=== PATIENT | female | born 1940 | race Caucasian/White ===

== ENCOUNTER 2019-08-12 18:49 | Inpatient (IN) | payer MEDICARE ==
[2019-08-12] MEDS ORDERED: Acetaminophen 650 MG Suppository PR PRN (20:54)
--- NOTE | 2019-08-12 21:31 | PDOC.EVN ---
Event Note - Event Note Event Note: [id number] HP
[2019-08-12 21:36] LABS: Vancomycin, Trough Less than 1.1 ug/mL
[2019-08-12] MEDS: Sodium Chloride 0.9% 1,000 ML IV SCH (23:19)
[2019-08-12] MEDS: metroNIDAZOLE 500 MG in Premix Bag 1 BAG IVPB SCH (23:20)
[2019-08-12] MEDS: Vancomycin HCl 1 GM in Premix Bag 1 BAG IVPB SCH (23:24)
[2019-08-12] MEDS: Heparin 5,000 UNITS/ML VIAL SC SCH (23:25)
[2019-08-13 00:07] LABS: Lactic Acid 2.4 mmol/L (0.5-2.2)
[2019-08-13] MEDS: Vancomycin HCl 1 GM in Premix Bag 1 BAG IVPB SCH ×3 (00:52→20:41)
--- NOTE | 2019-08-13 02:14 | HP ---
CHIEF COMPLAINT: Altered mental status. HISTORY OF PRESENT ILLNESS: Ms. Watkins is a 79-year-old female with past medical history of Alzheimer's dementia, hyperlipidemia, hypertension, among others, presented to [facility] with altered mental status. The patient is a [facility] resident. The patient is a poor historian and unable to give a clear history. She is able to answer only yes and no questions. She denies pain, shortness of breath, or nausea. Workup in the emergency room, the patient was septic with lactic acid of 5.9 and elevated WBC count of 12.5. Acute renal failure with a BUN of 52 and creatinine of 1.7. Hypernatremic with sodium of 148. The patient has a history of urinary tract infections in the past. Septic workup done in the ED. The patient is on IV broad-spectrum antibiotics. The patient is being admitted to hospital for further management. PAST MEDICAL HISTORY: 1. Alzheimer dementia. 2. Hyperlipidemia. 3. Hypertension. PAST SURGICAL HISTORY: 1. Hysterectomy. 2. Kidney stone removal. SOCIAL HISTORY: The patient smokes cigarettes. Denies alcohol use. FAMILY HISTORY: Reviewed and noncontributory. HOME MEDICATIONS: Please see home medication reconciliation form for updated medications. ALLERGIES: NO KNOWN ALLERGIES. REVIEW OF SYSTEMS: Unreliable, but review of 14 systems negative except what is mentioned in the history of present illness. PHYSICAL EXAMINATION: VITAL SIGNS: Blood pressure is 120/56, pulse is 78, respiratory rate is 18, pulse oximetry is 94% on room air. HEAD: Normocephalic, atraumatic. NECK: Supple. No JVD. CHEST: Fair bilateral air entry. HEART: S1, S2. Regular. ABDOMEN: Soft, nontender. Bowel sounds present. NEUROLOGIC: Awake, alert, moving extremities. PSYCHIATRIC: Unable to assess. EXTREMITIES: No clubbing, no cyanosis. GENITOURINARY: No suprapubic tenderness. No flank tenderness. MUSCULOSKELETAL: No joint tenderness or apparent deformity. LABORATORY DATA: WBC count is 12.5, hemoglobin 15.9, platelets 143. Sodium 143, potassium 4.4, BUN is 52, creatinine 1.7, glucose 179. Chest x-ray, no acute cardiopulmonary process. CT of the brain, no acute intracranial process. ASSESSMENT: A 79-year-old female with history of dementia, hypertension, hyperlipidemia, presenting with altered mental status. 1. Sepsis, source is unclear at this point. 2. Lactic acidosis. 3. Hypernatremia. 4. Acute renal failure. 5. Hypertension. 6. Hyperlipidemia. PLAN: 1. Admit. 2. Septic workup including blood cultures. 3. IV antibiotics, awaiting culture results. 4. IV fluid hydration. 5. Monitor kidney function and urine output. 6. Reconcile medications. 7. DVT prophylaxis as appropriate. 8. Expected length of stay 2 midnights or more. Job ID: [id number]
[2019-08-13 02:22] LABS: Band 3 % (5-11); Hemoglobin 13.6 g/dL (12.0-16.0); Lymphocytes 17 % (21-51); MDiff Complete? YES; Mean Corpuscular HGB CONC 32.7 g/dL (32.0-36.0); Mean Corpuscular Hemoglobin 34.3 pg (27.0-31.0); Mean Platelet Volume 7.8 fL (7.4-10.4); Monocytes 15 % (0-10); Neutrophil 65 % (42-75); Platelet Count 111 thou/uL (130-400); Platelet Morphology Comment Appears Decreased; RBC Distribution Width 13.5 % (11.5-14.5); Red Blood Cell (RBC) Count 3.97 mill/uL (4.20-5.40); White Blood Cell (WBC) Count 10.5 thou/uL (4.8-10.8)
[2019-08-13 02:53] LABS: ALT (SGPT) 16 U/L (8-55); AST (SGOT) 24 U/L (5-34); Albumin 2.6 g/dL (3.4-4.8); Alkaline Phosphatase 48 U/L (40-110); Anion Gap 14 mmol/L (10-20); BUN (Urea Nitrogen) 48 mg/dL (9.8-20.1); Bilirubin, Total 0.8 mg/dL (0.2-1.2); Calc. Creatinine Clearance 43 mL/min (70-130); Calcium 8.1 mg/dL (7.8-10.44); Carbon Dioxide 23 mmol/L (23-31); Chloride 113 mmol/L (98-107); Estimated GFR-MDRD 46; Globulin 4.1 g/dL (2.4-3.5); Glucose 184 mg/dL (83-110); Potassium 3.9 mmol/L (3.5-5.1); Protein, Total 6.7 g/dL (6.0-8.3); Sodium 146 mmol/L (136-145)
[2019-08-13] MEDS: Cefepime 1 GM in Sodium Chloride 0.9% 100 ML IVPB SCH ×2 (05:03→18:35)
[2019-08-13] MEDS: metroNIDAZOLE 500 MG in Premix Bag 1 BAG IVPB SCH ×3 (06:13→22:02)
[2019-08-13] MEDS: Heparin 5,000 UNITS/ML VIAL SC SCH ×2 (08:05→21:47)
[2019-08-13] MEDS: Sodium Chloride 0.9% 1,000 ML IV SCH ×2 (09:27→20:38)
--- NOTE | 2019-08-13 09:32 | PDOC.HOSPP ---
- Subjective Encounter Date: 08/13/19 Encounter Time: 10:40 Subjective: Patient without complaints. Trying to sleep and a bit upset when I wake her up. Dementia. Can't give any history. - Objective Vital Signs & Weight: Vital Signs (12 hours) Temp Pulse Resp BP Pulse Ox 08/13/19 07:20 97.9 F 69 16 134/63 97 08/13/19 07:08 97 08/13/19 03:17 97.5 F L 72 18 140/79 96 08/13/19 00:18 96 08/12/19 22:20 97.1 F L 84 18 96 Weight Weight 148 lb 12.8 oz I&O: 08/12/19 08/13/19 08/14/19 06:59 06:59 06:59 Intake Total 550 Balance 550 Result Diagrams: 08/13/19 01:58 08/13/19 01:58 Hospitalist ROS - Review of Systems ROS unobtainable: due to mental status - Medication Medications: Active Medications Generic Name Dose Route Start Last Admin Trade Name Freq PRN Reason Stop Dose Admin Heparin Sodium (Porcine) 5,000 units 08/12/19 21:00 08/13/19 08:05 Heparin SC 5,000 units BID SURYA Administration Sodium Chloride 1,000 mls @ 75 mls/hr 08/12/19 21:00 08/13/19 09:27 Normal Saline 0.9% IV Not Given .[id number] SURYA Cefepime HCl 1 gm/ Sodium 100 mls @ 200 mls/hr 08/13/19 06:00 08/13/19 05:03 Chloride IVPB 100 mls 0600,1800 SURYA Administration Vancomycin HCl 1 gm/ Device 200 mls @ 200 mls/hr 08/12/19 21:00 08/13/19 08: 06 IVPB 200 mls Q12HR SURYA Administration Metronidazole 500 mg/ Device 100 mls @ 100 mls/hr 08/12/19 22:00 08/13/19 06: 13 IVPB 100 mls Q8HR SURYA Administration Sodium Chloride 10 ml 08/13/19 09:00 08/13/19 08:06 Flush - Normal Saline IVF Not Given Q12HR SURYA - Exam General Appearance: NAD ENT: moist mucosa Heart: RRR, no murmur, no gallops, no rubs Respiratory: CTAB, no wheezes, no rales, no ronchi Gastrointestinal: soft, non-tender, non-distended, normal bowel sounds Psychiatric: normal affect, not oriented Hosp A/P (1) Severe sepsis Code(s): A41.9 - SEPSIS, UNSPECIFIED ORGANISM; R65.20 - SEVERE SEPSIS WITHOUT SEPTIC SHOCK Status: Acute (2) Acute renal failure Status: Acute (3) HTN (hypertension) Code(s): I10 - ESSENTIAL (PRIMARY) HYPERTENSION Status: Chronic (4) HLD (hyperlipidemia) Code(s): E78.5 - HYPERLIPIDEMIA, UNSPECIFIED Status: Chronic (5) Dementia Code(s): F03.90 - UNSPECIFIED DEMENTIA WITHOUT BEHAVIORAL DISTURBANCE Status: Chronic - Plan Lactic acidosis resolved, creatinine improved, leukocytosis resolved. Unknown source. UA neg. CXR neg. Flu neg. Currently only Cefepime, Metronidazole , and Vanc. If cultures remain negative tomorrow can back off on antibiotics. Encourage po intake, continue IV fluids. DVT Proph- Heparin GI Proph- Pepcid
[2019-08-13] MEDS: Divalproex Sodium 125 mg Sprinkle Capsule PO SCH ×3 (14:12→21:46)
[2019-08-13] MEDS ORDERED: Non-Formulary Item 1 EACH (Arginine/Ascorbate Sod/Vite Ac [Arginaid Powder] 1 PACKET) PO SCH (21:00)
[2019-08-13] MEDS ORDERED: Non-Formulary Item 1 EACH (Donepezil Hcl [Aricept] 23 MG) PO SCH (21:00)
[2019-08-13] MEDS ORDERED: Donepezil Hcl [Aricept] 23 MG PO SCH (21:00)
[2019-08-13] MEDS: Donepezil HCl 10 MG TAB PO SCH (21:47)
[2019-08-13] MEDS: Atorvastatin Calcium 20 MG TAB PO SCH (22:00)
[2019-08-13] MEDS: Famotidine 20 MG TAB PO SCH (22:00)
[2019-08-13] MEDS: Ascorbic Acid 500 mg Chewable Tablet PO SCH (22:00)
[2019-08-13] MEDS: ARGINAID PO SCH (22:01)
[2019-08-14 04:48] LABS: Anion Gap 10 mmol/L (10-20); BUN (Urea Nitrogen) 31 mg/dL (9.8-20.1); Calc. Creatinine Clearance 69 mL/min (70-130); Calcium 8.2 mg/dL (7.8-10.44); Carbon Dioxide 24 mmol/L (23-31); Chloride 113 mmol/L (98-107); Estimated GFR-MDRD 81; Glucose 107 mg/dL (83-110); Potassium 3.3 mmol/L (3.5-5.1); Sodium 144 mmol/L (136-145)
[2019-08-14 04:53] LABS: Hemoglobin 13.2 g/dL (12.0-16.0); Lymphocytes 20 % (21-51); MDiff Complete? YES; Mean Corpuscular HGB CONC 32.5 g/dL (32.0-36.0); Mean Corpuscular Hemoglobin 33.7 pg (27.0-31.0); Mean Platelet Volume 7.8 fL (7.4-10.4); Monocytes 11 % (0-10); Neutrophil 69 % (42-75); Platelet Count 129 thou/uL (130-400); Platelet Morphology Comment Appears Adequate; RBC Distribution Width 13.3 % (11.5-14.5); Red Blood Cell (RBC) Count 3.91 mill/uL (4.20-5.40); White Blood Cell (WBC) Count 6.8 thou/uL (4.8-10.8)
[2019-08-14] MEDS: Cefepime 1 GM in Sodium Chloride 0.9% 100 ML IVPB SCH ×2 (05:18→17:10)
[2019-08-14] MEDS: metroNIDAZOLE 500 MG in Premix Bag 1 BAG IVPB SCH (06:04)
[2019-08-14] MEDS: Vancomycin HCl 1 GM in Premix Bag 1 BAG IVPB SCH (08:50)
[2019-08-14] MEDS ORDERED: ZINC SULFATE 220 MG PO SCH (09:00)
[2019-08-14] MEDS ORDERED: Divalproex Sodium 125 mg Sprinkle Capsule PO SCH ×2 (09:00)
[2019-08-14] MEDS ORDERED: Bisacodyl 10 MG SUPP PR PRN (09:33)
[2019-08-14] MEDS ORDERED: Ondansetron PF 4 MG/2 ML Vial IVP PRN (09:33)
[2019-08-14] MEDS ORDERED: Benzonatate 100 MG CAP PO PRN (09:38)
[2019-08-14] MEDS ORDERED: Labetalol HCl 100 MG/20 ML VIAL SLOW IVP PRN (09:38)
[2019-08-14] MEDS ORDERED: Docusate 100 MG CAP PO PRN (09:38)
[2019-08-14] MEDS ORDERED: Melatonin 3 MG TAB PO PRN (09:38)
[2019-08-14] MEDS: Heparin 5,000 UNITS/ML VIAL SC SCH ×2 (09:40→20:20)
[2019-08-14] MEDS: Sodium Chloride 0.9% 1,000 ML IV SCH ×2 (10:00→19:40)
[2019-08-14] MEDS: Divalproex Sodium 125 mg Sprinkle Capsule PO SCH ×3 (10:46→20:19)
[2019-08-14] MEDS: Ascorbic Acid 500 mg Chewable Tablet PO SCH ×2 (10:57→20:20)
[2019-08-14] MEDS: Famotidine 20 MG TAB PO SCH ×2 (10:57→20:20)
[2019-08-14] MEDS: Zinc Sulfate 220 MG CAP PO SCH (10:58)
[2019-08-14] MEDS: ARGINAID PO SCH ×2 (10:59→20:21)
[2019-08-14 13:21] VITALS: BMI 25.4
[2019-08-14] MEDS ORDERED: Potassium Chloride 20 MEQ TAB PO SCH (16:15)
--- NOTE | 2019-08-14 16:57 | PDOC.HOSPP ---
- Subjective Subjective: Seen and examined. Patient encephalopathy to her baseline per family at bedside. Her daughter, son-in-law, and grandchildren are at bedside. I baseline some days patient knows who she is, most she does not. Patient does not know where she is, year, or situation ever. Patient with dementia. Patient's daughter states that she had wanted to be a do not resuscitate in the past. We will consult with palliative care to try and solidify code status. This patient will indefinitely have problems in the future and be back to the hospital. Patient worked well with speech therapy and was able to pass or swallow evaluation. I stopped broad-spectrum antibiotics as the patient has Enterococcus faecalis in the urine that is resistant to fluoroquinolones. It is sensitive to cefepime. Patient is afebrile. Wound care is following for deep tissue injury to the sacrum stage I present on admission. Time was given to the family for questions, all answered in detail. - Objective Vital Signs & Weight: Vital Signs (12 hours) Temp Pulse Pulse Pulse Resp BP BP 08/14/19 15:15 71 73 148/63 H 139/65 08/14/19 15:08 97.4 F L 71 18 08/14/19 12:00 97.9 F 70 19 08/14/19 07:44 97.4 F L 70 18 BP Pulse Ox 08/14/19 15:15 08/14/19 15:08 145/67 H 97 08/14/19 12:00 175/87 H 97 08/14/19 07:44 163/72 H 97 Weight Admit Weight 148 lb 12.8 oz Weight 147 lb 14 oz I&O: 08/13/19 08/14/19 08/15/19 06:59 06:59 06:59 Intake Total 550 1600 Output Total 800 Balance 550 800 Result Diagrams: 08/14/19 04:04 08/14/19 04:04 Radiology Reviewed by me: Yes Hospitalist ROS - Review of Systems All other systems reviewed; all pertinent +/- noted in HPI/Subj - Medication Medications: Active Medications Generic Name Dose Route Start Last Admin Trade Name Freq PRN Reason Stop Dose Admin Ascorbic Acid 500 mg 08/13/19 21:00 08/14/19 10:57 Vitamin C PO 500 mg BID SURYA Administration Atorvastatin Calcium 20 mg 08/13/19 21:00 08/13/19 22:00 Lipitor PO Not Given HS SURYA Divalproex Sodium 125 mg 08/13/19 15:00 08/14/19 15:06 Depakote Sprinkle PO 125 mg TID SURYA Administration Donepezil HCl 20 mg 08/13/19 21:00 08/13/19 21:47 Aricept PO 20 mg HS SURYA Administration Famotidine 20 mg 08/13/19 21:00 08/14/19 10:57 Pepcid PO 20 mg BID SURYA Administration Heparin Sodium (Porcine) 5,000 units 08/12/19 21:00 08/14/19 09:40 Heparin SC 5,000 units BID SURYA Administration Cefepime HCl 1 gm/ Sodium 100 mls @ 200 mls/hr 08/13/19 06:00 08/14/19 05:18 Chloride IVPB 100 mls 0600,1800 SURYA Administration Sodium Chloride 1,000 mls @ 50 mls/hr 08/14/19 09:41 08/14/19 10:00 Normal Saline 0.9% IV 1,000 mls .Q20H SURYA Administration Arginaid Powder 0 each 08/13/19 21:00 08/14/19 10:59 PO Not Given BID SURYA Sodium Chloride 10 ml 08/13/19 09:00 08/14/19 09:47 Flush - Normal Saline IVF Not Given Q12HR SURYA Zinc Sulfate 220 mg 08/14/19 09:00 08/14/19 10:58 Zinc Sulfate PO 220 mg DAILY SURYA Administration - Exam General Appearance: NAD, awake alert Eye: PERRL ENT: normocephalic atraumatic, moist mucosa Neck: supple, symmetric, no lymphadenopathy Heart: no murmur, no gallops, no rubs Respiratory: CTAB, no wheezes, no rales, no ronchi, normal chest expansion, no tachypnea Gastrointestinal: soft, non-tender, non-distended, no guarding, no rigidity Extremities: no edema Skin: no lesions, no rashes Neurological: cranial nerve grossly intact, no focal deficits Musculoskeletal: generalized weakness Psychiatric: not oriented Psychiatric - other findings: inappropriate affect Hosp A/P (1) UTI (urinary tract infection) Status: Acute (2) Severe sepsis Code(s): A41.9 - SEPSIS, UNSPECIFIED ORGANISM; R65.20 - SEVERE SEPSIS WITHOUT SEPTIC SHOCK Status: Acute (3) Dementia Code(s): F03.90 - UNSPECIFIED DEMENTIA WITHOUT BEHAVIORAL DISTURBANCE Status: Chronic (4) HLD (hyperlipidemia) Code(s): E78.5 - HYPERLIPIDEMIA, UNSPECIFIED Status: Chronic (5) HTN (hypertension) Code(s): I10 - ESSENTIAL (PRIMARY) HYPERTENSION Status: Chronic - Plan Plan: medical unit with telemetry broad-spectrum antibiotics have been de-escalated to specific culture today Enterococcus faecalis which is sensitive to current antibiotics resistant to fluoroquinolones continue other home medications as able blood pressure control blood sugar control patient's daughter and family at bedside tell me that at one point she wanted to be a do not resuscitate, now she is with dementia and she cannot make her own decisions We will ask for the palliative care teams input in addressing code status G.I. prophylaxis DVT prophylaxis
[2019-08-14] MEDS: Donepezil HCl 10 MG TAB PO SCH (20:19)
[2019-08-14] MEDS: Atorvastatin Calcium 20 MG TAB PO SCH (20:19)
[2019-08-14] MEDS: Famotidine/PF 20 mg/2ml Vial SLOW IVP SCH (20:20)
[2019-08-15] MEDS: Cefepime 1 GM in Sodium Chloride 0.9% 100 ML IVPB SCH ×2 (05:32→17:18)
[2019-08-15 05:34] LABS: Band 3 % (5-11); Lymphocytes 12 % (21-51); MDiff Complete? YES; Macrocytosis SLIGHT = 6-15 cells (100X) (0-5/hpf); Mean Corpuscular HGB CONC 34.2 g/dL (32.0-36.0); Mean Corpuscular Hemoglobin 35.2 pg (27.0-31.0); Mean Platelet Volume 7.5 fL (7.4-10.4); Metamyelocyte 1 % (0-0); Monocytes 8 % (0-10); Neutrophil 74 % (42-75); Platelet Count 147 thou/uL (130-400); Platelet Morphology Comment Appears Adequate; RBC Distribution Width 13.1 % (11.5-14.5); Reactive Lymphocytes 1 % (0-10); Red Blood Cell (RBC) Count 3.68 mill/uL (4.20-5.40); White Blood Cell (WBC) Count 8.2 thou/uL (4.8-10.8)
[2019-08-15 05:44] LABS: Anion Gap 10 mmol/L (10-20); BUN (Urea Nitrogen) 18 mg/dL (9.8-20.1); Calc. Creatinine Clearance 73 mL/min (70-130); Calcium 7.9 mg/dL (7.8-10.44); Carbon Dioxide 23 mmol/L (23-31); Chloride 112 mmol/L (98-107); Estimated GFR-MDRD 86; Glucose 119 mg/dL (83-110); Potassium 3.4 mmol/L (3.5-5.1); Sodium 142 mmol/L (136-145)
[2019-08-15] MEDS ORDERED: Potassium Chloride 20 MEQ TAB PO SCH (07:45)
[2019-08-15] MEDS: Divalproex Sodium 125 mg Sprinkle Capsule PO SCH ×3 (09:05→20:29)
[2019-08-15] MEDS: Lisinopril/Hydrochlorothiazide 20 mg/12.5 mg Tablet PO SCH (09:07)
[2019-08-15] MEDS: Ascorbic Acid 500 mg Chewable Tablet PO SCH ×2 (09:14→20:29)
[2019-08-15] MEDS: Famotidine/PF 20 mg/2ml Vial SLOW IVP SCH ×2 (09:14→20:29)
[2019-08-15] MEDS: Famotidine 20 MG TAB PO SCH ×2 (09:16→20:30)
[2019-08-15] MEDS: ARGINAID PO SCH ×2 (09:17→20:31)
[2019-08-15] MEDS: Zinc Sulfate 220 MG CAP PO SCH (09:17)
[2019-08-15] MEDS: Heparin 5,000 UNITS/ML VIAL SC SCH ×2 (09:20→20:30)
--- NOTE | 2019-08-15 11:20 | PDOC.HOSPP ---
- Subjective Subjective: Seen and examined. Breathing comfortably on room air. Confused to her baseline. Does not answer questions appropriately. Denies pain to be this AM, later tells RN she is having leg pain. Adding Tylenol. Will not repeat her name, does not know where she is, does not know the year, does not know situation - this is baseline per family. - Objective Vital Signs & Weight: Vital Signs (12 hours) Temp Pulse Resp BP BP Pulse Ox 08/15/19 09:07 75 158/74 H 08/15/19 07:27 99.7 F H 77 20 145/63 H 93 L 08/15/19 03:29 97.8 F 79 18 145/65 H 92 L 08/14/19 23:57 79 146/66 H Weight Admit Weight 148 lb 12.8 oz Weight 148 lb 2 oz I&O: 08/14/19 08/15/19 08/16/19 06:59 06:59 06:59 Intake Total 1600 920 Output Total 800 200 Balance 800 720 Result Diagrams: 08/15/19 05:07 08/15/19 05:07 Radiology Reviewed by me: Yes Hospitalist ROS - Review of Systems All other systems reviewed; all pertinent +/- noted in HPI/Subj - Medication Medications: Active Medications Generic Name Dose Route Start Last Admin Trade Name Olya PRN Reason Stop Dose Admin Ascorbic Acid 500 mg 08/13/19 21:00 08/15/19 09:14 Vitamin C PO 500 mg BID SURYA Administration Atorvastatin Calcium 20 mg 08/13/19 21:00 08/14/19 20:19 Lipitor PO 20 mg HS SURYA Administration Divalproex Sodium 125 mg 08/13/19 15:00 08/15/19 09:05 Depakote Sprinkle PO 125 mg TID SURYA Administration Donepezil HCl 20 mg 08/13/19 21:00 08/14/19 20:19 Aricept PO 20 mg HS SURYA Administration Famotidine 20 mg 08/13/19 21:00 08/15/19 09:16 Pepcid PO Not Given BID SURYA Famotidine 20 mg 08/14/19 21:00 08/15/19 09:14 Pepcid SLOW IVP 20 mg Q12HR SURYA Administration Lisinopril/HCTZ 1 tab 08/15/19 09:00 08/15/19 09:07 Prinizide 20-12.5 PO 1 tab DAILY SURYA Administration Heparin Sodium (Porcine) 5,000 units 08/12/19 21:00 08/15/19 09:20 Heparin SC 5,000 units BID SURYA Administration Cefepime HCl 1 gm/ Sodium 100 mls @ 200 mls/hr 08/13/19 06:00 08/15/19 05:32 Chloride IVPB 100 mls 0600,1800 SURYA Administration Sodium Chloride 1,000 mls @ 50 mls/hr 08/14/19 09:41 08/14/19 19:40 Normal Saline 0.9% IV 1,000 mls .Q20H SURYA Administration Arginaid Powder 0 each 08/13/19 21:00 08/15/19 09:17 PO Not Given BID SURYA Potassium Chloride 40 meq 08/15/19 07:45 08/15/19 09:02 K-Dur PO 08/15/19 12:00 40 meq NOW SURYA Administration Sodium Chloride 10 ml 08/13/19 09:00 08/15/19 09:17 Flush - Normal Saline IVF Not Given Q12HR SURYA Zinc Sulfate 220 mg 08/14/19 09:00 08/15/19 09:17 Zinc Sulfate PO 220 mg DAILY SURYA Administration - Exam General Appearance: NAD, awake alert Eye: anicteric sclera ENT: normocephalic atraumatic, moist mucosa Neck: supple, symmetric, no lymphadenopathy Heart: no murmur, no gallops, no rubs Respiratory: CTAB, no wheezes, no rales, no ronchi, normal chest expansion Gastrointestinal: soft, non-tender, non-distended, no guarding, no rigidity Extremities: no edema Skin: no lesions, no rashes Neurological: cranial nerve grossly intact, no new deficit Musculoskeletal: generalized weakness Psychiatric: not oriented Hosp A/P (1) UTI (urinary tract infection) Status: Acute (2) Severe sepsis Code(s): A41.9 - SEPSIS, UNSPECIFIED ORGANISM; R65.20 - SEVERE SEPSIS WITHOUT SEPTIC SHOCK Status: Acute (3) Dementia Code(s): F03.90 - UNSPECIFIED DEMENTIA WITHOUT BEHAVIORAL DISTURBANCE Status: Chronic (4) HLD (hyperlipidemia) Code(s): E78.5 - HYPERLIPIDEMIA, UNSPECIFIED Status: Chronic (5) HTN (hypertension) Code(s): I10 - ESSENTIAL (PRIMARY) HYPERTENSION Status: Chronic - Plan Plan: medical unit with telemetry broad-spectrum antibiotics have been de-escalated to specific culture today Enterococcus faecalis which is sensitive to current antibiotics resistant to fluoroquinolones continue other home medications as able blood pressure control blood sugar control patient's daughter and family at bedside tell me that at one point she wanted to be a do not resuscitate, now she is with dementia and she cannot make her own decisions We will ask for the palliative care teams input in addressing code status - patients daughter states she wanted to be a DNR at one point. Now with advanced dementia. G.I. prophylaxis DVT prophylaxis Consult CM for placement
[2019-08-15] MEDS: Acetaminophen 325 MG TAB PO PRN (13:12)
--- NOTE | 2019-08-15 17:27 | PDOC.EVN ---
Event Note - Event Note Event Note: Discussed case with Tomas (Medical and financial power of attorney lawyer) Tomas tells me that the patient has an advance directive stating that she is a do not resuscitate and do not intubate. We will honor their wishes and change code status. Patient's family and Tomas wish for her to go to either [facility] facility or rehabilitation facility where she can continue to work with PT and OT and regain some of her strength and independence. Two weeks ago prior to bladder infections she was eating her meals, ambulating, and her mentation was significantly improved and she has had a dramatic decline in the past two weeks. I discussed all pertinent medical facts, time was given for questions - all answered in detail. Case management consultation requested for placement.
[2019-08-15] MEDS: Atorvastatin Calcium 20 MG TAB PO SCH (20:29)
[2019-08-15] MEDS: Donepezil HCl 10 MG TAB PO SCH (20:29)
[2019-08-16] MEDS: Cefepime 1 GM in Sodium Chloride 0.9% 100 ML IVPB SCH (05:33)
[2019-08-16] MEDS: Divalproex Sodium 125 mg Sprinkle Capsule PO SCH ×3 (07:50→20:45)
[2019-08-16] MEDS: Famotidine/PF 20 mg/2ml Vial SLOW IVP SCH ×2 (07:50→20:45)
[2019-08-16] MEDS: Heparin 5,000 UNITS/ML VIAL SC SCH ×2 (07:50→20:46)
[2019-08-16] MEDS: Ascorbic Acid 500 mg Chewable Tablet PO SCH ×2 (07:50→20:45)
[2019-08-16] MEDS: Lisinopril/Hydrochlorothiazide 20 mg/12.5 mg Tablet PO SCH (07:51)
[2019-08-16] MEDS: Zinc Sulfate 220 MG CAP PO SCH (07:51)
[2019-08-16] MEDS: Famotidine 20 MG TAB PO SCH ×2 (07:51→20:46)
[2019-08-16] MEDS: ARGINAID PO SCH ×2 (08:04→20:47)
[2019-08-16] MEDS: Sodium Chloride 0.9% 1,000 ML IV SCH ×2 (11:06→21:06)
[2019-08-16] MEDS ORDERED: Potassium Chloride 20 MEQ TAB PO SCH (16:15)
[2019-08-16] MEDS: Acetaminophen 325 MG TAB PO PRN (16:19)
--- NOTE | 2019-08-16 18:29 | PDOC.HOSPP ---
- Subjective Encounter Date: 08/16/19 Encounter Time: 18:28 Subjective: Lying comfortably in bed. No overnight events. - Objective Vital Signs & Weight: Vital Signs (12 hours) Temp Pulse Pulse Resp BP BP Pulse Ox 08/16/19 17:50 98.7 F 65 20 132/72 90 L 08/16/19 15:43 99.7 F H 67 18 140/62 93 L 08/16/19 12:00 98.9 F 68 18 136/65 94 L 08/16/19 09:42 80 137/61 08/16/19 08:07 96 08/16/19 07:43 99.0 F 70 17 166/72 H 96 Weight Admit Weight 148 lb 12.8 oz Weight 148 lb 8 oz I&O: 08/15/19 08/16/19 08/17/19 06:59 06:59 06:59 Intake Total 920 560 Output Total 200 700 Balance 720 -140 Result Diagrams: 08/15/19 05:07 08/15/19 05:07 Hospitalist ROS - Review of Systems All other systems reviewed; all pertinent +/- noted in HPI/Subj - Medication Medications: Active Medications Generic Name Dose Route Start Last Admin Trade Name Freq PRN Reason Stop Dose Admin Acetaminophen 650 mg 08/15/19 11:14 08/16/19 16:19 Tylenol PO 650 mg Q4H PRN Administration Moderate to Severe Pain (6-10) Ascorbic Acid 500 mg 08/13/19 21:00 08/16/19 07:50 Vitamin C PO 500 mg BID SURYA Administration Atorvastatin Calcium 20 mg 08/13/19 21:00 08/15/19 20:29 Lipitor PO 20 mg HS SURYA Administration Divalproex Sodium 125 mg 08/13/19 15:00 08/16/19 14:26 Depakote Sprinkle PO 125 mg TID SURYA Administration Donepezil HCl 20 mg 08/13/19 21:00 08/15/19 20:29 Aricept PO 20 mg HS SURYA Administration Famotidine 20 mg 08/13/19 21:00 08/16/19 07:51 Pepcid PO Not Given BID SURYA Famotidine 20 mg 08/14/19 21:00 08/16/19 07:50 Pepcid SLOW IVP 20 mg Q12HR SURYA Administration Lisinopril/HCTZ 1 tab 08/15/19 09:00 08/16/19 07:51 Prinizide 20-12.5 PO 1 tab DAILY SURYA Administration Heparin Sodium (Porcine) 5,000 units 08/12/19 21:00 08/16/19 07:50 Heparin SC 5,000 units BID SURYA Administration Sodium Chloride 1,000 mls @ 50 mls/hr 08/14/19 09:41 08/16/19 11:06 Normal Saline 0.9% IV Not Given .Q20H SURYA Arginaid Powder 0 each 08/13/19 21:00 08/16/19 08:04 PO Not Given BID SURYA Sodium Chloride 10 ml 08/13/19 09:00 08/16/19 07:51 Flush - Normal Saline IVF Not Given Q12HR SURYA Zinc Sulfate 220 mg 08/14/19 09:00 08/16/19 07:51 Zinc Sulfate PO 220 mg DAILY SURYA Administration - Exam General Appearance: awake alert General - other findings: Alert to person Eye: PERRL, anicteric sclera ENT: normocephalic atraumatic, no oropharyngeal lesions, moist mucosa Neck: supple, symmetric, no JVD, no thyromegaly, no lymphadenopathy, no carotid bruit Heart: RRR, no murmur, no gallops, no rubs, normal peripheral pulses Respiratory: CTAB, no wheezes, no rales, no ronchi, normal chest expansion, no tachypnea, normal percussion Gastrointestinal: soft, non-tender, non-distended, normal bowel sounds, no palpable masses, no hepatomegaly, no splenomegaly, no bruit Extremities: no cyanosis, no clubbing, no edema Skin: normal turgor, no lesions, no rashes Neurological: cranial nerve grossly intact, normal sensation to touch, no weakness, no focal deficits, no new deficit Musculoskeletal: normal tone, normal strength, no muscle wasting Psychiatric: normal affect, normal behavior, A&O x 3 Hosp A/P (1) Severe sepsis Code(s): A41.9 - SEPSIS, UNSPECIFIED ORGANISM; R65.20 - SEVERE SEPSIS WITHOUT SEPTIC SHOCK Status: Acute (2) UTI (urinary tract infection) Status: Acute (3) Dementia Code(s): F03.90 - UNSPECIFIED DEMENTIA WITHOUT BEHAVIORAL DISTURBANCE Status: Chronic (4) HLD (hyperlipidemia) Code(s): E78.5 - HYPERLIPIDEMIA, UNSPECIFIED Status: Chronic (5) HTN (hypertension) Code(s): I10 - ESSENTIAL (PRIMARY) HYPERTENSION Status: Chronic - Plan Enterococcus faecalis susceptibilities are now posted, discontinue cefepime, continue Augmentin p.o. Continue medications from home for chronic conditions Disposition: Consulting case management for placement. She will likely go back to a nursing facility as per family's request. Palliative has seen on this visit as well.
[2019-08-16] MEDS: Donepezil HCl 10 MG TAB PO SCH (20:45)
[2019-08-16] MEDS: Atorvastatin Calcium 20 MG TAB PO SCH (20:45)
[2019-08-16] MEDS: Amoxicillin/Potassium Clav 875 MG TAB PO SCH (20:45)
[2019-08-16] MEDS: diphenhydrAMINE 25 MG CAP PO PRN (20:48)
[2019-08-17 05:34] LABS: #Basophils 0.1 thou/uL (0.0-0.2); #Eosinphils 0.2 thou/uL (0.0-0.7); #Lymphocytes 2.7 thou/uL (1.20-3.40); %Basophils 0.8 % (0.0-1.0); %Eosinophils 2.6 % (0.0-10.0); %Lymphocytes 30.3 % (21.0-51.0); %Monocytes 11.2 % (0.0-10.0); %Neutrophils 55.1 % (42.0-75.0); Hemoglobin 11.9 g/dL (12.0-16.0); Mean Corpuscular HGB CONC 34.2 g/dL (32.0-36.0); Mean Platelet Volume 7.3 fL (7.4-10.4); Platelet Count 184 thou/uL (130-400); RBC Distribution Width 13.1 % (11.5-14.5); Red Blood Cell (RBC) Count 3.39 mill/uL (4.20-5.40)
[2019-08-17 05:53] LABS: Anion Gap 8 mmol/L (10-20); BUN (Urea Nitrogen) 14 mg/dL (9.8-20.1); Calc. Creatinine Clearance 70 mL/min (70-130); Calcium 7.8 mg/dL (7.8-10.44); Carbon Dioxide 27 mmol/L (23-31); Chloride 107 mmol/L (98-107); Estimated GFR-MDRD 82; Glucose 84 mg/dL (83-110); Potassium 3.3 mmol/L (3.5-5.1); Sodium 139 mmol/L (136-145)
[2019-08-17] MEDS: Famotidine 20 MG TAB PO SCH ×3 (08:28→20:50)
[2019-08-17] MEDS: Heparin 5,000 UNITS/ML VIAL SC SCH ×2 (08:28→20:28)
[2019-08-17] MEDS: Famotidine/PF 20 mg/2ml Vial SLOW IVP SCH ×3 (08:28→20:51)
[2019-08-17] MEDS: Amoxicillin/Potassium Clav 875 MG TAB PO SCH ×2 (08:28→20:26)
[2019-08-17] MEDS: Ascorbic Acid 500 mg Chewable Tablet PO SCH ×2 (08:28→20:26)
[2019-08-17] MEDS: Lisinopril/Hydrochlorothiazide 20 mg/12.5 mg Tablet PO SCH (08:40)
[2019-08-17] MEDS: Zinc Sulfate 220 MG CAP PO SCH (08:40)
[2019-08-17] MEDS: Divalproex Sodium 125 mg Sprinkle Capsule PO SCH ×3 (08:40→20:26)
[2019-08-17] MEDS: ARGINAID PO SCH ×2 (08:40→20:58)
--- NOTE | 2019-08-17 10:41 | PDOC.HOSPP ---
- Subjective Encounter Date: 08/17/19 Encounter Time: 14:30 Subjective: Patient without complaints. No events overnight. - Objective Vital Signs & Weight: Vital Signs (12 hours) Temp Pulse Resp BP BP Pulse Ox 08/17/19 08:40 66 164/81 H 08/17/19 08:28 94 L 08/17/19 08:00 97.9 F 66 164/81 H 94 L 08/17/19 04:29 98.2 F 62 16 160/87 H 94 L 08/17/19 00:00 97.3 F L 72 16 162/89 H 94 L Weight Admit Weight 148 lb 12.8 oz Weight 148 lb 8 oz I&O: 08/16/19 08/17/19 08/18/19 06:59 06:59 06:59 Intake Total 560 600 Output Total 700 300 Balance -140 300 Result Diagrams: 08/17/19 05:20 08/17/19 05:20 Hospitalist ROS - Review of Systems ROS unobtainable: due to mental status - Medication Medications: Active Medications Generic Name Dose Route Start Last Admin Trade Name Freq PRN Reason Stop Dose Admin Acetaminophen 650 mg 08/15/19 11:14 08/16/19 16:19 Tylenol PO 650 mg Q4H PRN Administration Moderate to Severe Pain (6-10) Amoxicillin/Clavulanate Potassium 875 mg 08/16/19 21:00 08/17/19 08:28 Augmentin PO 875 mg Q12HR SURYA Administration Ascorbic Acid 500 mg 08/13/19 21:00 08/17/19 08:28 Vitamin C PO 500 mg BID SURYA Administration Atorvastatin Calcium 20 mg 08/13/19 21:00 08/16/19 20:45 Lipitor PO 20 mg HS SURYA Administration Diphenhydramine HCl 25 mg 08/14/19 09:38 08/16/19 20:48 Benadryl PO 25 mg Q6H PRN Administration Itching & Insomnia Divalproex Sodium 125 mg 08/13/19 15:00 08/17/19 08:40 Depakote Sprinkle PO 125 mg TID SURYA Administration Donepezil HCl 20 mg 08/13/19 21:00 08/16/19 20:45 Aricept PO 20 mg HS SURYA Administration Famotidine 20 mg 08/13/19 21:00 08/17/19 08:28 Pepcid PO 20 mg BID SURYA Administration Famotidine 20 mg 08/14/19 21:00 08/17/19 08:28 Pepcid SLOW IVP 20 mg Q12HR SURYA Administration Lisinopril/HCTZ 1 tab 08/15/19 09:00 08/17/19 08:40 Prinizide 20-12.5 PO 1 tab DAILY SURYA Administration Heparin Sodium (Porcine) 5,000 units 08/12/19 21:00 08/17/19 08:28 Heparin SC 5,000 units BID SURYA Administration Sodium Chloride 1,000 mls @ 50 mls/hr 08/14/19 09:41 08/16/19 21:06 Normal Saline 0.9% IV 1,000 mls .Q20H SURYA Administration Arginaid Powder 0 each 08/13/19 21:00 08/17/19 08:40 PO Not Given BID SURYA Sodium Chloride 10 ml 08/13/19 09:00 08/17/19 08:29 Flush - Normal Saline IVF Not Given Q12HR SURYA Zinc Sulfate 220 mg 08/14/19 09:00 08/17/19 08:40 Zinc Sulfate PO 220 mg DAILY SURYA Administration - Exam General Appearance: NAD ENT: moist mucosa Heart: RRR, no murmur, no gallops, no rubs Respiratory: CTAB, no wheezes, no rales, no ronchi Gastrointestinal: soft, non-tender, non-distended, normal bowel sounds Psychiatric: not oriented Hosp A/P (1) Severe sepsis Code(s): A41.9 - SEPSIS, UNSPECIFIED ORGANISM; R65.20 - SEVERE SEPSIS WITHOUT SEPTIC SHOCK Status: Acute (2) Acute renal failure Status: Acute (3) HTN (hypertension) Code(s): I10 - ESSENTIAL (PRIMARY) HYPERTENSION Status: Chronic (4) HLD (hyperlipidemia) Code(s): E78.5 - HYPERLIPIDEMIA, UNSPECIFIED Status: Chronic (5) Dementia Code(s): F03.90 - UNSPECIFIED DEMENTIA WITHOUT BEHAVIORAL DISTURBANCE Status: Chronic - Plan Enterococcus faecalis in urine, taking Augmentin po Arrange discharge to SNF/skilled nursing- awaiting case management to set up DVT Proph- Heparin GI Proph- Pepcid
[2019-08-17] MEDS: Sodium Chloride 0.9% 1,000 ML IV SCH (14:30)
[2019-08-17] MEDS: Atorvastatin Calcium 20 MG TAB PO SCH (20:26)
[2019-08-17] MEDS: Donepezil HCl 10 MG TAB PO SCH (20:26)
[2019-08-17] MEDS: diphenhydrAMINE 25 MG CAP PO PRN (20:26)
[2019-08-17] MEDS ORDERED: Calcium Carbonate 500 MG ChewTAB PO SCH (21:00)
[2019-08-17] MEDS: ALPRAZolam 0.25 MG TAB PO SCH (21:23)
[2019-08-18] MEDS: Famotidine/PF 20 mg/2ml Vial SLOW IVP SCH ×3 (07:46→19:41)
--- NOTE | 2019-08-18 08:53 | PDOC.HOSPP ---
- Subjective Encounter Date: 08/18/19 Encounter Time: 12:40 Subjective: Patient sleeping, easily arousable, no complaints. - Objective Vital Signs & Weight: Vital Signs (12 hours) Temp Pulse Resp BP Pulse Ox 08/18/19 07:37 96.5 F L 60 16 158/69 H 93 L 08/17/19 23:43 97.7 F 69 18 158/70 H 93 L Weight Admit Weight 148 lb 12.8 oz Weight 148 lb 8 oz I&O: 08/17/19 08/18/19 08/19/19 06:59 06:59 06:59 Intake Total 600 720 Output Total 300 Balance 300 720 Result Diagrams: 08/17/19 05:20 08/17/19 05:20 Hospitalist ROS - Review of Systems Constitutional: denies: fever, chills Respiratory: denies: cough, shortness of breath Cardiovascular: denies: chest pain, palpitations Gastrointestinal: denies: nausea, vomiting, abdominal pain - Medication Medications: Active Medications Generic Name Dose Route Start Last Admin Trade Name Freq PRN Reason Stop Dose Admin Acetaminophen 650 mg 08/15/19 11:14 08/16/19 16:19 Tylenol PO 650 mg Q4H PRN Administration Moderate to Severe Pain (6-10) Alprazolam 0.25 mg 08/17/19 21:00 08/17/19 21:23 Xanax PO 0.25 mg HS SURYA Administration Amoxicillin/Clavulanate Potassium 875 mg 08/16/19 21:00 08/17/19 20:26 Augmentin PO 875 mg Q12HR SUYRA Administration Ascorbic Acid 500 mg 08/13/19 21:00 08/17/19 20:26 Vitamin C PO 500 mg BID SURYA Administration Atorvastatin Calcium 20 mg 08/13/19 21:00 08/17/19 20:26 Lipitor PO 20 mg HS SURYA Administration Diphenhydramine HCl 25 mg 08/14/19 09:38 08/17/19 20:26 Benadryl PO 25 mg Q6H PRN Administration Itching & Insomnia Divalproex Sodium 125 mg 08/13/19 15:00 08/17/19 20:26 Depakote Sprinkle PO 125 mg TID SURYA Administration Donepezil HCl 20 mg 08/13/19 21:00 08/17/19 20:26 Aricept PO 20 mg HS SURYA Administration Famotidine 20 mg 08/13/19 21:00 08/17/19 20:50 Pepcid PO Not Given BID SURYA Famotidine 20 mg 08/14/19 21:00 08/18/19 07:46 Pepcid SLOW IVP Not Given Q12HR SURYA Lisinopril/HCTZ 1 tab 08/15/19 09:00 08/17/19 08:40 Prinizide 20-12.5 PO 1 tab DAILY SURYA Administration Heparin Sodium (Porcine) 5,000 units 08/12/19 21:00 08/17/19 20:28 Heparin SC 5,000 units BID SURYA Administration Sodium Chloride 1,000 mls @ 50 mls/hr 08/14/19 09:41 08/17/19 14:30 Normal Saline 0.9% IV 1,000 mls .Q20H SURYA Administration Arginaid Powder 0 each 08/13/19 21:00 08/17/19 20:58 PO Not Given BID SURYA Sodium Chloride 10 ml 08/13/19 09:00 08/17/19 20:50 Flush - Normal Saline IVF Not Given Q12HR SURYA Zinc Sulfate 220 mg 08/14/19 09:00 08/17/19 08:40 Zinc Sulfate PO 220 mg DAILY SURYA Administration - Exam General Appearance: NAD, awake alert ENT: moist mucosa Heart: RRR, no murmur, no gallops, no rubs Respiratory: CTAB, no wheezes, no rales, no ronchi Gastrointestinal: soft, non-tender, non-distended, normal bowel sounds Psychiatric: normal affect, normal behavior Hosp A/P (1) Severe sepsis Code(s): A41.9 - SEPSIS, UNSPECIFIED ORGANISM; R65.20 - SEVERE SEPSIS WITHOUT SEPTIC SHOCK Status: Acute (2) Acute renal failure Status: Acute (3) HTN (hypertension) Code(s): I10 - ESSENTIAL (PRIMARY) HYPERTENSION Status: Chronic (4) HLD (hyperlipidemia) Code(s): E78.5 - HYPERLIPIDEMIA, UNSPECIFIED Status: Chronic (5) Dementia Code(s): F03.90 - UNSPECIFIED DEMENTIA WITHOUT BEHAVIORAL DISTURBANCE Status: Chronic - Plan Enterococcus faecalis in urine, taking Augmentin po Arrange discharge to SNF/correction- awaiting case management to set up DVT Proph- Heparin GI Proph- Pepcid
[2019-08-18] MEDS: Amoxicillin/Potassium Clav 875 MG TAB PO SCH ×2 (09:26→19:40)
[2019-08-18] MEDS: Lisinopril/Hydrochlorothiazide 20 mg/12.5 mg Tablet PO SCH (09:28)
[2019-08-18] MEDS: Ascorbic Acid 500 mg Chewable Tablet PO SCH ×2 (09:28→19:40)
[2019-08-18] MEDS: Zinc Sulfate 220 MG CAP PO SCH (09:29)
[2019-08-18] MEDS: Famotidine 20 MG TAB PO SCH ×2 (09:31→19:41)
[2019-08-18] MEDS: Divalproex Sodium 125 mg Sprinkle Capsule PO SCH ×3 (09:31→19:40)
[2019-08-18] MEDS: Sodium Chloride 0.9% 1,000 ML IV SCH (09:32)
[2019-08-18] MEDS: Heparin 5,000 UNITS/ML VIAL SC SCH ×2 (09:33→19:41)
[2019-08-18] MEDS: ARGINAID PO SCH ×2 (09:50→19:41)
[2019-08-18] MEDS: Atorvastatin Calcium 20 MG TAB PO SCH (19:40)
[2019-08-18] MEDS: Donepezil HCl 10 MG TAB PO SCH (19:40)
[2019-08-18] MEDS: ALPRAZolam 0.25 MG TAB PO SCH (19:40)
[2019-08-19 05:45] LABS: #Basophils 0.1 thou/uL (0.0-0.2); #Eosinphils 0.4 thou/uL (0.0-0.7); #Lymphocytes 2.9 thou/uL (1.20-3.40); #Monocytes 0.8 thou/uL (0.11-0.59); #Neutrophils 3.4 thou/uL (1.40-6.50); %Basophils 0.8 % (0.0-1.0); %Eosinophils 4.9 % (0.0-10.0); %Lymphocytes 37.7 % (21.0-51.0); %Monocytes 11.1 % (0.0-10.0); %Neutrophils 45.5 % (42.0-75.0); Hemoglobin 11.7 g/dL (12.0-16.0); Mean Corpuscular HGB CONC 35.1 g/dL (32.0-36.0); Mean Corpuscular Hemoglobin 35.4 pg (27.0-31.0); Mean Platelet Volume 7.2 fL (7.4-10.4); Platelet Count 238 thou/uL (130-400); RBC Distribution Width 13.1 % (11.5-14.5); Red Blood Cell (RBC) Count 3.31 mill/uL (4.20-5.40); White Blood Cell (WBC) Count 7.6 thou/uL (4.8-10.8)
[2019-08-19 06:03] LABS: Anion Gap 9 mmol/L (10-20); BUN (Urea Nitrogen) 8 mg/dL (9.8-20.1); Calc. Creatinine Clearance 80 mL/min (70-130); Calcium 7.9 mg/dL (7.8-10.44); Carbon Dioxide 25 mmol/L (23-31); Chloride 107 mmol/L (98-107); Estimated GFR-MDRD Greater than 90; Glucose 88 mg/dL (83-110); Sodium 138 mmol/L (136-145)
[2019-08-19 06:08] LABS: Potassium 2.7 mmol/L (3.5-5.1)
[2019-08-19] MEDS ORDERED: Potassium Chloride 20 MEQ TAB PO SCH ×2 (06:45→09:00)
[2019-08-19] MEDS: Zinc Sulfate 220 MG CAP PO SCH (08:51)
[2019-08-19] MEDS: Lisinopril/Hydrochlorothiazide 20 mg/12.5 mg Tablet PO SCH (08:51)
[2019-08-19] MEDS: Ascorbic Acid 500 mg Chewable Tablet PO SCH (08:51)
[2019-08-19] MEDS: Famotidine/PF 20 mg/2ml Vial SLOW IVP SCH (08:51)
[2019-08-19] MEDS: Heparin 5,000 UNITS/ML VIAL SC SCH (08:51)
[2019-08-19] MEDS: Amoxicillin/Potassium Clav 875 MG TAB PO SCH (08:51)
[2019-08-19] MEDS: Divalproex Sodium 125 mg Sprinkle Capsule PO SCH ×2 (08:53→15:36)
[2019-08-19] MEDS: Famotidine 20 MG TAB PO SCH (09:36)
[2019-08-19] MEDS: ARGINAID PO SCH (09:38)
--- NOTE | 2019-08-19 09:43 | PDOC.HOSPP ---
- Subjective Encounter Date: 08/19/19 Encounter Time: 13:30 Subjective: Patient without complaints. Not oriented. - Objective Vital Signs & Weight: Vital Signs (12 hours) Pulse BP 08/19/19 08:51 85 161/75 H Weight Admit Weight 148 lb 12.8 oz Weight 148 lb 8 oz I&O: 08/18/19 08/19/19 08/20/19 06:59 06:59 06:59 Intake Total 720 700 Balance 720 700 Result Diagrams: 08/19/19 05:26 08/19/19 11:52 Hospitalist ROS - Review of Systems ROS unobtainable: due to mental status - Medication Medications: Active Medications Generic Name Dose Route Start Last Admin Trade Name Freq PRN Reason Stop Dose Admin Acetaminophen 650 mg 08/15/19 11:14 08/16/19 16:19 Tylenol PO 650 mg Q4H PRN Administration Moderate to Severe Pain (6-10) Alprazolam 0.25 mg 08/17/19 21:00 08/18/19 19:40 Xanax PO 0.25 mg HS SURYA Administration Amoxicillin/Clavulanate Potassium 875 mg 08/16/19 21:00 08/19/19 08:51 Augmentin PO 875 mg Q12HR SURYA Administration Ascorbic Acid 500 mg 08/13/19 21:00 08/19/19 08:51 Vitamin C PO 500 mg BID SURYA Administration Atorvastatin Calcium 20 mg 08/13/19 21:00 08/18/19 19:40 Lipitor PO 20 mg HS SURYA Administration Diphenhydramine HCl 25 mg 08/14/19 09:38 08/17/19 20:26 Benadryl PO 25 mg Q6H PRN Administration Itching & Insomnia Divalproex Sodium 125 mg 08/13/19 15:00 08/19/19 08:53 Depakote Sprinkle PO 125 mg TID SURYA Administration Donepezil HCl 20 mg 08/13/19 21:00 08/18/19 19:40 Aricept PO 20 mg HS SURYA Administration Famotidine 20 mg 08/13/19 21:00 08/19/19 09:36 Pepcid PO Not Given BID SURYA Famotidine 20 mg 08/14/19 21:00 08/19/19 08:51 Pepcid SLOW IVP 20 mg Q12HR SURYA Administration Lisinopril/HCTZ 1 tab 02/08/20 09:00 08/19/19 08:51 Prinizide 20-12.5 PO 1 tab DAILY SURYA Administration Heparin Sodium (Porcine) 5,000 units 08/12/19 21:00 08/19/19 08:51 Heparin SC 5,000 units BID SURYA Administration Sodium Chloride 1,000 mls @ 50 mls/hr 08/14/19 09:41 08/18/19 09:32 Normal Saline 0.9% IV 1,000 mls .Q20H SURYA Administration Arginaid Powder 0 each 08/13/19 21:00 08/19/19 09:38 PO Not Given BID SURYA Potassium Chloride 20 meq 08/19/19 09:00 08/19/19 09:38 K-Dur PO 08/19/19 10:00 20 meq NOW SURYA Administration Sodium Chloride 10 ml 08/13/19 09:00 08/18/19 19:42 Flush - Normal Saline IVF Not Given Q12HR SURYA Zinc Sulfate 220 mg 08/14/19 09:00 08/19/19 08:51 Zinc Sulfate PO 220 mg DAILY SURYA Administration - Exam General Appearance: NAD, awake alert ENT: moist mucosa Heart: RRR, no murmur, no gallops, no rubs Respiratory: CTAB, no wheezes, no rales, no ronchi Gastrointestinal: soft, non-tender, non-distended, normal bowel sounds Psychiatric: normal affect, normal behavior, not oriented Hosp A/P (1) UTI (urinary tract infection) Status: Acute (2) Severe sepsis Code(s): A41.9 - SEPSIS, UNSPECIFIED ORGANISM; R65.20 - SEVERE SEPSIS WITHOUT SEPTIC SHOCK Status: Resolved (3) Acute renal failure Status: Resolved (4) HTN (hypertension) Code(s): I10 - ESSENTIAL (PRIMARY) HYPERTENSION Status: Chronic (5) HLD (hyperlipidemia) Code(s): E78.5 - HYPERLIPIDEMIA, UNSPECIFIED Status: Chronic (6) Dementia Code(s): F03.90 - UNSPECIFIED DEMENTIA WITHOUT BEHAVIORAL DISTURBANCE Status: Chronic (7) Hypokalemia Code(s): E87.6 - HYPOKALEMIA Status: Acute - Plan Enterococcus faecalis in urine, taking Augmentin po, continue for 2 more days Repleted potassium and recheck at noon was normal Transfer to SNF today DVT Proph- Heparin GI Proph- Pepcid
[2019-08-19] MEDS: Sodium Chloride 0.9% 1,000 ML IV SCH (11:21)
[2019-08-19 12:40] LABS: Anion Gap 13 mmol/L (10-20); BUN (Urea Nitrogen) 9 mg/dL (9.8-20.1); Calc. Creatinine Clearance 75 mL/min (70-130); Calcium 8.1 mg/dL (7.8-10.44); Carbon Dioxide 24 mmol/L (23-31); Chloride 106 mmol/L (98-107); Estimated GFR-MDRD 88; Glucose 98 mg/dL (83-110); Potassium 3.8 mmol/L (3.5-5.1); Sodium 139 mmol/L (136-145)
[2019-08-19 18:35] VITALS: BP 159/82; TEMP 98.4
--- NOTE | 2019-08-20 04:09 | DIS ---
DATE OF ADMISSION: 08/12/2019 DATE OF DISCHARGE: 08/19/2019 PRIMARY CARE PHYSICIAN: Dr. Urias. REASON FOR ADMISSION: Altered mental status. DIAGNOSES AT DISCHARGE: 1. Urinary tract infection, resolved. 2. Severe sepsis, resolved. 3. Acute renal failure, resolved. 4. Alzheimer's dementia. 5. Hypertension. 6. Hyperlipidemia. 7. Hypokalemia, resolved. PROCEDURES: None. CONSULTATIONS: None. SUMMARY OF HOSPITAL COURSE: This is a 79-year-old [place] female with a history of Alzheimer's dementia. She presented from [facility] with altered mental status, uncertain what exactly was altered about her in the long term, but she is normally only able to answer yes/no questions and she denied any complaints. She was noted to have a severe lactic acidosis and elevated white blood cell count and have a urinary tract infection. The patient was treated for sepsis and transferred from [facility] and admitted to the hospital. She was on broad-spectrum antibiotics, eventually enterococcus faecalis grew in her urine and she was able to be switched over to oral Augmentin. She has returned to her baseline mental status per her family. She remains oriented only to person and requires total care. She is being transferred back to the [facility] for correction care. DISCHARGE MANAGEMENT: Discharged to correction facility. ACTIVITY: As tolerated. DIET: Healthy heart diet with texture pureed extra sauce and gravy and controlled sips by straw and requires to have a feeder for her also with supplements of Bao b.i.d. THERAPY: Occupational, physical and speech therapy. MEDICATIONS: 1. Augmentin 875 mg twice daily for two more days. 2. Arginaid powder 1 packet twice daily. 3. Vitamin C 500 mg twice daily. 4. Lipitor 20 mg at night. 5. Tessalon Perles as needed for cough. 6. Dulcolax as needed for constipation. 7. Depakote Sprinkles 250 mg in the morning times daily. 8. Aricept 23 mg at night. 9. Lisinopril/hydrochlorothiazide 20/12.5 mg daily. 10. Melatonin 3 mg at night. 11. Zinc sulfate 220 mg daily. Arranging the details of this discharge took 35 minutes. Job ID: [id number]
== END 2019-08-19 18:39 | DRG 872 ==
LOC: ERS 18:49 → 2NO 21:04 → T4-B 08-16 17:53
PROVIDERS: ADMIT Internal Medicine; ATTEND Emergency Medicine
DX: A41.9 Sepsis, unspecified organism (principal); N39.0 Urinary tract infection, site not specified; N17.9 Acute kidney failure, unspecified; E87.2 Acidosis; E87.0 Hyperosmolality and hypernatremia; R65.20 Severe sepsis without septic shock; G30.9 Alzheimer's disease, unspecified; F02.80 Dementia in other diseases classified elsewhere, unspecified severity, without behavioral disturbance, psychotic disturbance, mood disturbance, and anxiety; I10 Essential (primary) hypertension; F17.210 Nicotine dependence, cigarettes, uncomplicated; E78.5 Hyperlipidemia, unspecified; E87.6 Hypokalemia; Z90.710 Acquired absence of both cervix and uterus
CPT/HCPCS: 36415; 80048; 80053; 80202; 83605; 85007; 85025; 85027; 99285; J0692; J1644; J3370; J3490; Q0163; S0028